=== PATIENT | female | born 1995 | race Caucasian/White ===

== ENCOUNTER 2017-03-05 11:30 | Emergency (ER) | payer MEDICAID ==
[~2017-03-05] VITALS: Ht 157.5 cm; Wt 78.0 kg
[~2017-03-05 11:30] MED LIST: NITR-58 PO
[2017-03-05 11:42] VITALS: Ht 157.5 cm; Wt 78.0 kg
--- NOTE | 2017-03-05 11:58 | ERD ---
ER Documentation Chief Complaint Date/Time DATE: 03/05/17 TIME: 11:56 Chief Complaint RIGHT LEG LAC HPI Patient is a 21-year-old female with no past medical history presents to the ED with a healing laceration on her right leg. She states that 5 days ago which a propeller cut her leg she was swimming in the leg. She denies fever or chills but she does have pain at the site and bruising. She states it was bleeding at the time. She denies fever or chills. She is not up-to-date with her immunizations including her tetanus shot. Denies passing out or hitting her head or losing consciousness. No other complaints. ROS All systems reviewed and are negative except as per history of present illness. Medications Home Meds Active Scripts Naproxen* (Naprosyn*) 500 Mg Tablet, 500 MG PO BID Y for PAIN AND/OR INFLAMMATION, #30 TAB Prov:CHRISTAL HORTON PA-C 03/05/17 Cephalexin* (Keflex*) 500 Mg Capsule, 500 MG PO QID for 5 Days, CAP Prov:CHRISTAL HORTON PA-C 03/05/17 Nitrofurantoin Monohyd Macrocr* (Macrobid*) 100 Mg Capsr, 100 MG PO BID for 5 Days, CAP Prov:ENRICO CABRERA NP 10/19/15 Allergies Allergies: Coded Allergies: No Known Allergy (Unverified , 10/19/15) PMhx/Soc History of Surgery: No Anesthesia Reaction: No Hx Neurological Disorder: No Hx Respiratory Disorders: No Hx Cardiac Disorders: No Hx Psychiatric Problems: No Hx Miscellaneous Medical Probl: No Hx Alcohol Use: No Hx Substance Use: No Hx Tobacco Use: No FmHx Family History: No coronary disease, No diabetes, No other Physical Exam Vitals Vital Signs Date Time Temp Pulse Resp B/P Pulse Ox O2 Delivery O2 Flow Rate FiO2 03/05/17 11:42 98.1 78 20 124/64 99 Physical Exam GENERAL: Well-developed, well-nourished female. Appears in no acute distress. HEAD: Normocephalic, atraumatic. EYES: Pupils are equally reactive bilaterally. EOMs grossly intact. No conjunctival erythema. ENT: Moist mucous membranes. No uvula deviation. No kissing tonsils. No exudates. NECK: Supple. No lymphadenopathy or thyromegaly. No meningismus. negative kernig. negative brudinski. LUNG: Clear to auscultation bilaterally. No rhonchi, wheezing, rales or coarse breath sounds. HEART: Regular rate and rhythm. No murmurs, rubs or gallops. Extremities: Equal pulses bilaterally. No peripheral clubbing, cyanosis or edema. No unilateral leg swelling. 6 cm horizontal laceration on the anterior right upper leg. With ecchymosis surrounding. No warmth. Healing laceration. NEUROLOGIC: Alert and oriented. Moving all four extremities. 5/5 strength in all extremities. Normal speech. Steady gait. SKIN: Normal color. Warm and dry. No rashes or lesions. Capillary refill < 2 seconds Results 24 hrs Current Medications Medications (Trade) Dose Ordered Sig/Yasmin Route PRN Reason Start Time Stop Time Status Last Admin Dose Admin Diphtheria/ Tetanus/Acell Pertussis (Adacel) 0.5 ml ONCE ONCE IM* 03/05/17 12:00 03/05/17 12:01 DC 03/05/17 12:55 Procedures/MDM ER COURSE: I kept the patient and/or family informed of laboratory and diagnostic imaging results throughout the emergency room course. MEDICATIONS . Tolerated well with no adverse reaction. IMAGING STUDIES [place] [id number] Radiology Main Line: [phone] DIAGNOSTIC IMAGING REPORT Patient: DERECK HAND : 1995 Age: 21 Sex: F MR #: [id number] DOS: 03/05/17 1154 Ordering MD: CHRISTAL HORTON PA-C Location: [facility] Room/Bed: PROCEDURE: XR Right Femur CLINICAL INDICATION: Right leg laceration TECHNIQUE: AP and lateral radiographs were submitted. COMPARISON: None FINDINGS: Osseous structures: appear well mineralized and intact with no fracture or osseous destruction evident. Joint spaces: are well maintained with no significant erosion or spurring evident. There is no significant joint effusion Soft tissues: appear unremarkable. IMPRESSION: Unremarkable right femur. R Zachariah, Physician Date Time Electronically viewed and signed by Florencio Soni Physician on 03/05/2017 12:50 RH/ CC: CHRISTAL HORTON PA-C MEDICAL DECISION MAKING: This is a 21-year-old female who presents with laceration on her right leg 5 days. Vital signs were reviewed. Patient is afebrile. Patient is not hypoxic. Patient is not toxic or ill-appearing. X-ray is read by radiologist unremarkable. Patient has a healing laceration. No wound care was done here in the ED as the laceration was greater than 12 hours. However a tetanus shot was given to patient as she has not received one in the last 10 years. Patient will be sent home with Keflex as prophylaxis and to start in 2 days if erythema does not improve. Low suspicion for dislocation, fracture, septic joint, compartment syndrome, osteomyelitis, cellulitis, avascular necrosis, neurological injury, vascular injury, tendon laceration. Low suspicion for necrotizing fasciitis, SJS, toxic epidermal necrolysis, Kawasaki, erythema multiforme, gangrene, scarlet fever, meningococcemia, sepsis, anaphylaxis, sepsis, deep space infection, or foreign body. DISCHARGE: At this time, patient is stable for discharge and outpatient management with no new complaints during the ER course. Patient was sent home with Naprosyn and Keflex and a copy of imaging report. Patient will be discharged home with instructions to recheck for new or worsening symptoms such as fever, nausea, weakness, LOC and to follow up with primary care in the next 1-2 days. Patient was advised to return to the ER for any new or worsening symptoms. Plan was discussed and patient and/or family understands and agrees. Home instructions were given. Departure Diagnosis: Primary Impression: Laceration Condition: Stable CHRISTAL HORTON PA-C Mar 05, 2017 11:57
[2017-03-05] MEDS ORDERED: DIPHTH/TET/ACEL PERTUSS (ADULT) 0.5 ML VIAL IM* ONE (12:00)
[2017-03-05] MEDS ORDERED: NAPR-260 PO (12:02)
[2017-03-05] MEDS ORDERED: CEPH-443 PO (12:02)
--- NOTE | 2017-03-05 12:50 | RADRPT ---
PROCEDURE: XR Right Femur CLINICAL INDICATION: Right leg laceration TECHNIQUE: AP and lateral radiographs were submitted. COMPARISON: None FINDINGS: Osseous structures: appear well mineralized and intact with no fracture or osseous destruction evid ent. Joint spaces: are well maintained with no significant erosion or spurring evident. There is no sig nificant joint effusion Soft tissues: appear unremarkable. IMPRESSION: Unremarkable right femur. Physician Sukhdeep Date Time Electronically viewed and signed by Florencio Soni Physician on 03/05/2017 12:50 RH/
== END 2017-03-05 13:17 | disposition home or self-care (01) ==
LOC: FTE 11:30
DX: S81.811A Laceration without foreign body, right lower leg, initial encounter (principal); W22.8XXA Striking against or struck by other objects, initial encounter; Y92.9 Unspecified place or not applicable; Z23 Encounter for immunization
CPT/HCPCS: 73550; 90471; 90715; Z7502

== ENCOUNTER 2018-11-15 16:52 | Emergency (ER) | payer SELFPAY ==
[~2018-11-15] VITALS: Ht 167.6 cm; Wt 63.0 kg
[~2018-11-15 16:52] MED LIST changes: +CEPH-443 PO; +NAPR-985 PO
[2018-11-15 17:02] VITALS: BP 107/59; PULSE 75; RESP 20; Ht 167.6 cm; Wt 63.0 kg
[2018-11-16] MEDS ORDERED: BENZ-6 PO (12:09)
[2018-11-16] MEDS ORDERED: MED4DP PO (12:09)
[2018-11-16] MEDS ORDERED: PROM6.2515 PO (12:09)
== END 2018-11-15 20:50 | disposition left against medical advice (07) ==
LOC: FTE 16:52
DX: Z53.21 Procedure and treatment not carried out due to patient leaving prior to being seen by health care provider (principal)

== ENCOUNTER 2018-11-16 10:01 | Emergency (ER) | payer MEDICAID ==
[~2018-11-16] VITALS: Ht 152.4 cm; Wt 52.5 kg
[2018-11-16 10:08] VITALS: BP 126/72; PULSE 69; RESP 18; Ht 152.4 cm; Wt 52.5 kg
[2018-11-16] MEDS ORDERED: ALBUTEROL 0.083% (NEB) 2.5 MG/3 ML AMP HHN STA (11:38)
[2018-11-16] MEDS ORDERED: IPRATROPIUM (NEB) 0.5 MG/2.5 ML AMP HHN ONE (12:00)
[2018-11-16] MEDS ORDERED: predniSONE 20 MG TAB PO ONE (12:00)
[2018-11-16] MEDS ORDERED: MED4DP PO (12:09)
[2018-11-16] MEDS ORDERED: BENZ-6 PO (12:09)
[2018-11-16] MEDS ORDERED: PROM6.2515 PO (12:09)
--- NOTE | 2018-11-16 12:13 | ERD ---
ER Documentation Chief Complaint Chief Complaint COUGH X 4 DAYS HPI 23-year-old female presenting with cough times 4 days. Patient states is a dry and sometimes productive cough. Denies any fevers. Has not taken medications for symptoms. Denies any chest pain. Denies any medical problems. NKDA. Surgical history denies. Social history denies ROS All systems reviewed and are negative except as per history of present illness. Medications Home Meds Active Scripts Benzonatate* (Tessalon Perle*) 100 Mg Capsule, 100 MG PO Q8H PRN for COUGH, #30 CAP Prov:CHELSY LOCO PA-C 11/16/18 Promethazine Hcl* (Promethazine Hcl* Syrup) 6.25 Mg/5 Ml Syrup, 6.25 MG PO Q6H PRN for COUGH, #100 ML Prov:CHELSY LOCO PA-C 11/16/18 Methylprednisolone* (Medrol* DOSE PACK) 4 Mg/Dose-Pack Tab.ds.pk, 4 MG PO . DIRECTED, #1 PACKET Prov:CHELSY LOCO PA-C 11/16/18 Naproxen* (Naprosyn*) 500 Mg Tablet, 500 MG PO BID PRN for PAIN AND/OR INFLAMMATION, #30 TAB Prov:CHRISTAL HORTON PA-C 03/05/17 Cephalexin* (Keflex*) 500 Mg Capsule, 500 MG PO QID for 5 Days, CAP Prov:CHRISTAL HORTON PA-C 03/05/17 Nitrofurantoin Monohyd Macrocr* (Macrobid*) 100 Mg Capsr, 100 MG PO BID for 5 Days, CAP Prov:ENRICO CABRERA NP 10/19/15 Allergies Allergies: Coded Allergies: No Known Allergy (Unverified , 10/19/15) PMhx/Soc History of Surgery: No Anesthesia Reaction: No Hx Neurological Disorder: No Hx Respiratory Disorders: No Hx Cardiac Disorders: No Hx Psychiatric Problems: No Hx Miscellaneous Medical Probl: No Hx Alcohol Use: Yes Hx Substance Use: No Hx Tobacco Use: No Smoking Status: Never smoker FmHx Family History: No diabetes, No coronary disease, No other Physical Exam Vitals Vital Signs Date Temp Pulse Resp B/P (MAP) Pulse Ox O2 O2 Flow FiO2 Time Delivery Rate 11/16/18 98.1 69 18 126/72 99 10:08 (90) Physical Exam GENERAL: The patient is well-appearing, well-nourished, in no acute distress HEENT: Atraumatic. Conjunctivae are pink. Pupils equal, round, and reactive to light. There is no scleral icterus. Tympanic membranes clear bilaterally. Oropharynx clear. NECK: C-spine is soft and supple. There is no meningismus. There is no cervical lymphadenopathy CHEST: Diffuse wheezing her auscultation. No focal rhonchi. HEART: Regular rate and rhythm. No murmurs, clicks, rubs or gallops. Results 24 hrs Current Medications Medications Dose Sig/Yasmin Start Time Status Last (Trade) Ordered Route PRN Stop Time Admin Dose Reason Admin Albuterol 5 mg ONCE STAT 11/16/18 DC 11/16/18 (Proventil HHN 11:38 11/16/18 11:59 0.083% (Neb)) 11:39 Ipratropium 0.5 mg ONCE ONCE 11/16/18 DC 11/16/18 [place] HHN 12:00 11/16/18 12:00 (Atrovent 12:01 0.02% (Neb)) Prednisone 60 mg ONCE ONCE 11/16/18 DC 11/16/18 (Prednisone) PO 12:00 11/16/18 11:52 12:01 Procedures/MDM ER course: Albuterol and Atrovent breathing treatment given ED. prednisone given in ED MDM: 23-year-old female presenting with productive cough. I have low suspicion for pneumonia. I low suspicion for respiratory distress or hypoxia. Patient symptoms are consistent with otitis and patient be discharged with supportive medications. Patient is told symptoms change or worsen to return immediately to the ER. All questions answered at discharge Departure Diagnosis: Primary Impression: Cough Condition: Stable Patient Instructions: Cough, Chronic, Uncertain Cause, (Adult) Referrals: COMMUNITY CLINICS YOU HAVE RECEIVED A MEDICAL SCREENING EXAM AND THE RESULTS INDICATE THAT YOU DO NOT HAVE A CONDITION THAT REQUIRES URGENT TREATMENT IN THE EMERGENCY DEPARTMENT. FURTHER EVALUATION AND TREATMENT OF YOUR CONDITION CAN WAIT UNTIL YOU ARE SEEN IN YOUR DOCTORS OFFICE WITHIN THE NEXT 1-2 DAYS. IT IS YOUR RESPONSIBILITY TO MAKE AN APPOINTMENT FOR FOLOW-UP CARE. IF YOU HAVE A PRIMARY DOCTOR --you should call your primary doctor and schedule an appointment IF YOU DO NOT HAVE A PRIMARY DOCTOR YOU CAN CALL OUR PHYSICIAN REFERRAL HOTLINE AT IF YOU CAN NOT AFFORD TO SEE A PHYSICIAN YOU CAN CHOSE FROM THE FOLLOWING COUNT INCLUDES THE [facility] [address] [facility] [address] [facility] [address] [facility] [address] [facility] [facility] [address] [facility]. [facility]. [address] Additional Instructions: FOLLOW UP WITH YOUR PRIMARY CARE PHYSICIAN TOMORROW.Return to this facility if you are not improving as expected. CHELSY LOCO PA-C Nov 16, 2018 12:13
== END 2018-11-16 12:55 | disposition home or self-care (01) ==
LOC: FTE 10:01
DX: R05 Cough (principal)
CPT/HCPCS: 94664; J7512; Z7502; Z7610